=== PATIENT | female | born 1960 | race Caucasian/White ===

== ENCOUNTER → 2017-11-23 | Outpatient (CLI) | payer OTHER | LOC: BMCIMAGING 12:27 | PROVIDERS: ATTEND Internal Medicine | DX: Z12.31 Encounter for screening mammogram for malignant neoplasm of breast (principal) ==

== ENCOUNTER → 2018-12-10 | Outpatient (CLI) | payer OTHER | LOC: BMCIMAGING 12:15 | PROVIDERS: ATTEND Internal Medicine | DX: Z12.31 Encounter for screening mammogram for malignant neoplasm of breast (principal) ==

== ENCOUNTER → 2018-12-31 | Outpatient (CLI) | payer OTHER | LOC: FIMAGING 07:17 | PROVIDERS: ATTEND Radiology Diagnostic Radiology | DX: I82.512 Chronic embolism and thrombosis of left femoral vein (principal); I82.522 Chronic embolism and thrombosis of left iliac vein; Z95.5 Presence of coronary angioplasty implant and graft ==

== ENCOUNTER → 2019-02-03 | Day surgery (SDC) | payer OTHER ==
[~2019-02-03] MED LIST: IOPAMIDOL (ISOVUE-300) 100 ML BTL ONE; LIDOCAINE 1% 300 MG/30 ML SDV ONE
[2019-02-03 08:25] VITALS: BP 154/92
== END ==
LOC: FLAB 07:05
PROVIDERS: ATTEND Radiology Diagnostic Radiology
DX: I82.512 Chronic embolism and thrombosis of left femoral vein (principal); I82.522 Chronic embolism and thrombosis of left iliac vein; Z95.5 Presence of coronary angioplasty implant and graft
CPT/HCPCS: 36012; 75820; 76937; C1758; C1769; J1644; Q9967

== ENCOUNTER 2019-03-12 12:30 | Day surgery (SDC) | payer OTHER ==
[2019-03-12] MEDS ORDERED: fentaNYL 100 MCG/2 ML INJ IVP PRN (14:01)
[2019-03-12] MEDS ORDERED: MIDAZOLAM 2 MG/2 ML VIAL IVP PRN (14:01)
[2019-03-12] MEDS ORDERED: FLUMAZENIL 0.5 MG/5 ML MDV IVP PRN (14:01)
[2019-03-12] MEDS ORDERED: NALOXONE HCL 0.4 MG/ML INJ IVP PRN (14:01)
[2019-03-12] MEDS ORDERED: NS 1,000 ML IV SCH (14:15)
[2019-03-12] MEDS ORDERED: FLUMAZENIL 0.5 MG/5 ML MDV IVP ONE (14:19)
[2019-03-12] MEDS ORDERED: fentaNYL 100 MCG/2 ML INJ ONE (14:20)
[2019-03-12] MEDS ORDERED: MIDAZOLAM 2 MG/2 ML VIAL ONE (14:20)
[2019-03-12] MEDS ORDERED: NALOXONE HCL 0.4 MG/ML INJ ONE (14:20)
[2019-03-12] MEDS ORDERED: LIDOCAINE 1% 300 MG/30 ML SDV ONE (14:58)
--- NOTE | 2019-03-12 15:14 | PDPROPOC ---
Sedation Plan of Care Sedation Plan of Care: vital signs stable, mental status noted, patient educated of risks, benefits, alternatives, patient can tolerate sedation ASA Classification: ASA 2 Planned drugs: fentanyl, midazolam Mallampati Score: Class 2 Mallampati Reference Image: Patient passed 3-3-2 rule?: Yes
--- NOTE | 2019-03-12 15:14 | PDGENHP ---
History & Physical Chief Complaint: LLE SWELLING WITH RUNNING History of Present Illness: H/O DVT; MULTIPLE STENTS; PERSISTANT MILD SYMPTOMS AND PERSISTANT NARROWING AT [facility]. ANOTHER ATTEMPT AT COVERED STENT PLACEMENT TO IMPROVE PATENCY. Pertinent Past, Social, Family History: N/A Relevant Physical Exam: NO DISTRESS Cardiorespiratory Assessment: RRR, CTA
[2019-03-12] MEDS ORDERED: IOPAMIDOL (ISOVUE-300) 100 ML BTL ONE (16:14)
--- NOTE | 2019-03-12 16:14 | PDRADPN ---
Radiology Procedure Note Date of Procedure: 03/12/19 Radiologist: Phyllis Fay Anesthesia: IV Sedation Pre-op Diagnosis: LEG SWELLING AND PAIN Post-op Diagnosis: SAME Indication: STENOSIS AT PREVIOUSLY STENTLY CFV Procedure: RE-STENTING OF CFV Inf/Abcess present in the surg proc area at time of surgery?: No
[2019-03-12 17:31] VITALS: BP 135/77
== END 2019-03-12 17:26 | disposition home or self-care (01) ==
LOC: FIMAGING 12:30
PROVIDERS: ATTEND Radiology Diagnostic Radiology
DX: T82.856A Stenosis of peripheral vascular stent, initial encounter (principal); I87.1 Compression of vein; R22.42 Localized swelling, mass and lump, left lower limb; M79.662 Pain in left lower leg; Z86.718 Personal history of other venous thrombosis and embolism
CPT/HCPCS: 36011; 37238; 75736; 76937; 99152; C1769; C1887; C1892; C1725; C1874; J1644; J2250; J2310; J3010; Q9967